=== PATIENT | female | born 1990 | race Caucasian/White ===

== ENCOUNTER 2016-05-30 12:48 | Emergency (ER) | payer OTHER, SELFPAY ==
[2016-05-30 14:48] LABS: BASO % 0.4 % (0.0-1.0); EOS # 0.1 K/mm3 (0.0-0.50); EOS % 1.3 % (0.0-3.0); LARGE UNSTAINED CELL # 0.1 K/mm3 (0.0-0.4); LARGE UNSTAINED CELL % 1.3 % (0.0-4.0); LYMPH # 1.6 K/mm3 (1.5-6.5); LYMPH % 20.1 % (24.0-44.0); MEAN CORPUSCULAR HEMOGLOBIN 29.2 pg (27.0-33.0); MEAN CORPUSCULAR HGB CONC 34.7 g/dl (32.0-36.5); MEAN CORPUSCULAR VOLUME 84.2 fl (80.0-96.0); MONO # 0.3 K/mm3 (0.0-0.8); MONO % 4.2 % (0.0-5.0); NEUTROPHILS # 5.7 K/mm3 (1.8-7.7); NEUTROPHILS % 72.6 % (36.0-66.0); PLATELET COUNT, AUTOMATED 356 k/mm3 (150-450); RED CELL DISTRIBUTION WIDTH 12.8 % (11.5-14.5); WHITE BLOOD COUNT 7.9 K/mm3 (4.0-10.0)
[2016-05-30 15:16] LABS: ANION GAP 9 MEQ/L (8-16); BLOOD UREA NITROGEN 16 MG/DL (7-18); CALCIUM LEVEL 9.1 MG/DL (8.5-10.1); CARBON DIOXIDE LEVEL 26 MEQ/L (21-32); CHLORIDE LEVEL 106 MEQ/L (98-107); CREATININE FOR GFR 0.88 MG/DL (0.55-1.02); GLOMERULAR FILTRATION RATE > 60.0 (>60); GLUCOSE, FASTING 92 MG/DL (70-105); POTASSIUM SERUM 4.2 MEQ/L (3.5-5.1); SODIUM LEVEL 141 MEQ/L (136-145)
[2016-05-30 15:17] LABS: HCG, SERUM QUANTITATIVE < 1.0 MIU/ML
--- NOTE | 2016-05-30 16:43 | EDDOCDS ---
Physician Documentation [facility] Name: Payton Colon Age: 25 yrs Sex: Female : 1990 Arrival Date: 05/30/2016 Time: 12:48 Bed PR / Private MD: No PCP Disposition: 05/30/16 16:36 Discharged to Home/Self Care. Impression: Abnormal uterine and vaginal bleeding, unspecified. - Condition is Stable. - Discharge Instructions: Abnormal Uterine Bleeding. - Medication Reconciliation form. - Follow up: Emergency Department; When: As needed. Follow up: Rosmery Lu MD; When: Tomorrow; Reason: Wound/Symptom Recheck, Further diagnostic work-up, Recheck today's complaints, Continuance of care. - Problem is chronic. - Symptoms are unchanged. Historical: - Allergies: no known allergies; - Home Meds: 1. control pill 1 tab daily (Last dose: 05/30/2016 09:00) - PMHx: none; - PSHx: Tonsillectomy; Gall Bladder Removal; - Social history: Smoking status: Patient states was never smoker of tobacco. No barriers to communication noted, The patient speaks fluent Portuguese, Speaks appropriately for age. - Family history: Not pertinent. - : The pt / caregiver states he / she is not on anticoagulants. Home medication list is obtained from the patient. - Exposure Risk Screening:: None identified. 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 5 in. (165.10 cm) (R); Pain 2/10; 16:42 BP 145 / 95; Pulse 77; Resp 18; Temp 97.8; Pulse Ox 97% on R/A; Pain 0/10; rn1 12:50 Body Mass Index 36.61 (99.79 kg, 165.10 cm) gr2 MDM: 14:37 CBC with Diff Ordered. EDMS 14:37 Hcg, Serum Quantitative Ordered. EDMS 14:37 BMP Ordered. EDMS 14:37 TSH w/o Free T4 Ordered. EDMS 14:37 -US Pelvic Non-Ob Complete Ordered. EDMS 14:37 DUPLEX SCAN LIMITED (DOPPLER)+US Ordered. EDMS 14:37 UA Ordered. EDMS 14:42 Transvaginal NON- US Ordered. EDMS 14:43 Financial registration complete. mm15 15:16 [facility] Payment Agreement was scanned into [employer] and attached to record. mm15 16:22 CBC with Diff Reviewed. cc10 16:22 UA Reviewed. cc10 16:22 Hcg, Serum Quantitative Reviewed. cc10 16:22 BMP Reviewed. cc10 16:22 TSH w/o Free T4 Reviewed. cc10 Signatures: Dispatcher [employer] EDMS Parris Gannon,RN RN dsf Kya Mejia mm15 Juan Lowe, PACarolaC PASwapnil cc10 Toña Bhardwaj LPN LPN ka4 The chart was reviewed and I authenticate all verbal orders and agree with the evaluation and treatment provided.Attachments: 15:16 [facility] Payment Agreement mm15 MTDD
--- NOTE | 2016-05-30 16:43 | EDDOCDS ---
Nurse's Notes [facility] Name: Payton Colon Age: 25 yrs Sex: Female : 1990 Arrival Date: 05/30/2016 Time: 12:48 Bed PR Private MD: No PCP Diagnosis: Abnormal uterine and vaginal bleeding, unspecified Presentation: 05/30 12:51 Presenting complaint: Patient states: vaginal bleeding that started yesterday. Pt dsf states she is changing her pad every hour. pt denies pain or . Risk factors: The patient reports no loss of conciousness prior to arrival. This patient has not had a hysterectomy. This patient has not begun menopause. Adult Sepsis Screening: The patient does not have new or worsening altered mentation. Patient's respiratory rate is less than 22. Systolic blood pressure is greater than 100. Patient has a qSOFA score of 0- Negative Sepsis Screen. Suicide/Homicide risk assessment- the patient denies having any suicidal and/or homicidal ideations and does not present with any other emotional, behavioral or mental health complaints. Status: Patient is not a equipment services associate or dependent. Transition of care: patient was not received from another setting of care. 12:51 Acuity: ALBARO Level 3 dsf 12:51 Method Of Arrival: Walkin/Carried/Asstd dsf Triage Assessment: 12:53 General: Appears in no apparent distress, Behavior is appropriate for age, cooperative. dsf HIV screening NA for this visit Offered previously. GI: Denies pain. : Reports vaginal bleeding that is bright red with clots heavy flow since yesterday. Pain: Denies pain. 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 control pill 1 tab daily (Last dose: 05/30/2016 09:00) - PMHx: none; - PSHx: Tonsillectomy; Gall Bladder Removal; - Social history: Smoking status: Patient states was never smoker of tobacco. No barriers to communication noted, The patient speaks fluent Liberian, Speaks appropriately for age. - Family history: Not pertinent. - : The pt / caregiver states he / she is not on anticoagulants. Home medication list is obtained from the patient. - Exposure Risk Screening:: None identified. Screenin:40 Screening information is obtained from the patient. Fall risk: No risks identified. ka4 Assistance ADL's: requires no assistance with activities of daily living. Abuse/DV Screen: The patient / caregiver reports he/she is: not in a situation that causes fear, pain or injury. Nutritional screening: No deficits noted. Advance Directives: There is no active DNR order. home support is adequate. Assessment: 14:19 Adult Sepsis Screening: The patient does not have new or worsening altered mentation. dsf Patient's respiratory rate is less than 22. Systolic blood pressure is greater than 100. Patient has a qSOFA score of 0- Negative Sepsis Screen. General: Appears in no apparent distress, comfortable, Behavior is appropriate for age, cooperative. Pain: Location: low back Pain currently is 3 out of 10 on a pain scale. Quality of pain is described as aching. Neurological: Level of Consciousness is awake, alert. Cardiovascular: Capillary refill < 3 seconds. Respiratory: Airway is patent Respiratory effort is even, unlabored, Respiratory pattern is regular, symmetrical. : Reports vaginal bleeding that is bright red with clots heavy flow since yesterday. Derm: Skin is pink, warm & dry. 16:42 General: Appears in no apparent distress, comfortable, Behavior is appropriate for age, ka4 cooperative, pleasant. Respiratory: Airway is patent Respiratory effort is even, unlabored, Respiratory pattern is regular, symmetrical. Derm: Skin is intact, is healthy with good turgor, Skin is pink, warm & dry. Vital Signs: 12:50 BP 154 / 98; Pulse 96; Resp 18 S; Temp 98.3(O); Pulse Ox 98% on R/A; Weight 99.79 kg gr2 (R); Height 5 ft. 5 in. (165.10 cm) (R); Pain 2/10; 16:42 BP 145 / 95; Pulse 77; Resp 18; Temp 97.8; Pulse Ox 97% on R/A; Pain 0/10; rn1 12:50 Body Mass Index 36.61 (99.79 kg, 165.10 cm) gr2 Vitals: 12:50 Log In Time: May 30, 2016 at 12:50. gr2 ED Course: 12:49 Patient visited by Issac Ordonez. gr2 12:49 No PCP is Private Physician. gr2 12:49 Patient moved to Waiting gr2 12:50 Patient visited by Issac Ordonez. gr2 12:50 Patient moved to Pre RCE gr2 12:52 Triage Initiated dsf 14:18 Patient moved to Triage 3 dsf 14:20 Patient visited by Parris Gannon RN. dsf 14:25 Juan Lowe PA-C is PHCP. cc10 14:25 Candi Haile MD is Attending Physician. cc10 14:31 Patient visited by Juan Lowe PA-C. cc10 14:31 Patient visited by Juan Lowe PA-C. cc10 14:42 Patient moved to TR2 kr3 14:42 TSH w/o Free T4 Sent. kr3 14:42 BMP Sent. kr3 14:42 Hcg, Serum Quantitative Sent. kr3 14:42 CBC with Diff Sent. kr3 15:16 [facility] [place] Agreement was scanned into [employer] and attached to record. mm15 15:21 Patient moved to Ultrasound sm5 15:22 UA Sent. kr3 15:54 Patient moved to TR2 sm5 16:19 Patient name changed from Payton\S\\S\Colon\S\ to Payton\S\ \S\Colon. EDMS 16:22 Patient moved to PR kr3 16:36 Rosmery Lu MD is Referral Physician. cc10 16:40 The patient / caregiver is instructed regarding the plan of care and ED course. ka4 16:40 No IV's were initiated during this patient's visit. No procedures done that require ka4 assistance. Order Results: Lab Order: CBC with Diff; SPEC'M 05/30/16 14:40 Test: WHITE BLOOD COUNT; Value: 7.9; Range: 4.0-10.0; Units: K/mm3; Status: F Test: RED BLOOD COUNT; Value: 5.10; Range: 4.00-5.40; Units: M/mm3; Status: F Test: HEMOGLOBIN; Value: 14.9; Range: 12.0-16.0; Units: g/dl; Status: F Test: HEMATOCRIT; Value: 43.0; Range: 36.0-47.0; Units: %; Status: F Test: MEAN CORPUSCULAR VOLUME; Value: 84.2; Range: 80.0-96.0; Units: fl; Status: F Test: MEAN CORPUSCULAR HEMOGLOBIN; Value: 29.2; Range: 27.0-33.0; Units: pg; Status: F Test: MEAN CORPUSCULAR HGB CONC; Value: 34.7; Range: 32.0-36.5; Units: g/dl; Status: F Test: RED CELL DISTRIBUTION WIDTH; Value: 12.8; Range: 11.5-14.5; Units: %; Status: F Test: PLATELET COUNT, AUTOMATED; Value: 356; Range: 150-450; Units: k/mm3; Status: F Test: NEUTROPHILS %; Value: 72.6; Range: 36.0-66.0; Abnormal: Above high normal; Units: %; Status: F Test: LYMPH %; Value: 20.1; Range: 24.0-44.0; Abnormal: Below low normal; Units: %; Status: F Test: MONO %; Value: 4.2; Range: 0.0-5.0; Units: %; Status: F Test: EOS %; Value: 1.3; Range: 0.0-3.0; Units: %; Status: F Test: BASO %; Value: 0.4; Range: 0.0-1.0; Units: %; Status: F Test: LARGE UNSTAINED CELL %; Value: 1.3; Range: 0.0-4.0; Units: %; Status: F Test: NEUTROPHILS #; Value: 5.7; Range: 1.8-7.7; Units: K/mm3; Status: F Test: LYMPH #; Value: 1.6; Range: 1.5-6.5; Units: K/mm3; Status: F Test: MONO #; Value: 0.3; Range: 0.0-0.8; Units: K/mm3; Status: F Test: EOS #; Value: 0.1; Range: 0.0-0.50; Units: K/mm3; Status: F Test: BASO #; Value: 0.0; Range: 0.0-0.2; Units: K/mm3; Status: F Test: LARGE UNSTAINED CELL #; Value: 0.1; Range: 0.0-0.4; Units: K/mm3; Status: F Lab Order: Hcg, Serum Quantitative; SPEC'M 05/30/16 14:40 Test: HCG, SERUM QUANTITATIVE; Value: < 1.0; Units: MIU/ML; Status: F Test Note: ; GESTATIONAL AGE APPROXIMATE HCG RANGE (MIU/ML) 0.2-1 WEEK 5-50 1-2 WEEKS 50-500 2-3 WEEKS 100-5,000 3-4 WEEKS 500-10,000 4-5 WEEKS 1,000-50,000 5-6 WEEKS 10,000-100,000 6-8 WEEKS 15,000-200,000 2-3 MONTHS 10,000-100,000 NON FEMALES LESS THAN 3.0 Patient samples may contain human heterophilic antibodies that could react with immunoassays to give falsely elevated or depressed results. This assay has been designed to minimize interference from heterophilic antibodies. Elevated hCG levels have also been associated with trophoblastic disease and nontrophoblastic neoplasms. The possibility of having these diseases should be considered before a diagnosis of is made. This test is not intended for use as a surrogate marker for aiding in the diagnosis or monitoring the treatment of cancer patients. [employer] methodology. Lab Order: BMP; SPEC'M 05/30/16 14:40 Test: GLUCOSE, FASTING; Value: 92; Range: 70-105; Units: MG/DL; Status: F Test: BLOOD UREA NITROGEN; Value: 16; Range: 7-18; Units: MG/DL; Status: F Test: CREATININE FOR GFR; Value: 0.88; Range: 0.55-1.02; Units: MG/DL; Status: F Test: GLOMERULAR FILTRATION RATE; Value: > 60.0; Range: >60; Status: F Test: SODIUM LEVEL; Value: 141; Range: 136-145; Units: MEQ/L; Status: F Test: POTASSIUM SERUM; Value: 4.2; Range: 3.5-5.1; Units: MEQ/L; Status: F Test: CHLORIDE LEVEL; Value: 106; Range: 98-107; Units: MEQ/L; Status: F Test: CARBON DIOXIDE LEVEL; Value: 26; Range: 21-32; Units: MEQ/L; Status: F Test: ANION GAP; Value: 9; Range: 8-16; Units: MEQ/L; Status: F Test: CALCIUM LEVEL; Value: 9.1; Range: 8.5-10.1; Units: MG/DL; Status: F Test Note: ; Units are mL/min/1.73 m2 Chronic Kidney Disease Staging per NKF: Stage I & II GFR >=60 Normal to Mildly Decreased Stage III GFR 30-59 Moderately Decreased Stage IV GFR 15-29 Severely Decreased Stage V GFR <15 Very Little GFR Left ESRD GFR <15 on CREATIVE TECHNOLOGIST Lab Order: TSH w/o Free T4; SPEC'M 05/30/16 14:40 Test: THYROID STIMULATING HORMONE; Value: 2.150; Range: 0.358-3.740; Units: uIU/ML; Status: F Lab Order: UA; SPEC'M 05/30/16 15:20 Test: APPEARANCE, URINE; Value: CLOUDY; Range: CLEAR; Abnormal: Above high normal; Status: F Test: COLOR, URINE; Value: TEO; Range: YELLOW; Status: F Test: PH,URINE; Value: 5.0; Range: 5.0-9.0; Units: UNITS; Status: F Test: SPECIFIC GRAVITY URINE AUTO; Value: 1.028; Range: 1.002-1.035; Status: F Test: PROTEIN, URINE AUTO; Value: 2+; Range: NEGATIVE; Abnormal: Above high normal; Units: mg/dL; Status: F Test: GLUCOSE, URINE (UA) AUTO; Value: NEGATIVE; Range: NEGATIVE; Units: mg/dL; Status: F Test: KETONE, URINE AUTO; Value: NEGATIVE; Range: NEGATIVE; Units: mg/dL; Status: F Test: UROBILINOGEN, URINE AUTO; Value: 0.2; Range: 0.0-2.0; Units: mg/dL; Status: F Test: BILIRUBIN, URINE AUTO; Value: NEGATIVE; Range: NEGATIVE; Status: F Test: NITRITE, URINE AUTO; Value: POSITIVE; Range: NEGATIVE; Status: F Test: LEUKOCYTE ESTERASE, URINE AUTO; Value: NEGATIVE; Range: NEGATIVE; Status: F Test: BLOOD, URINE BLOOD; Value: 3+; Range: NEGATIVE; Abnormal: Above high normal; Status: F Test: WBC, URINE AUTO; Value: 1; Range: 0-3; Units: /HPF; Status: F Test: RBC, URINE AUTO; Value: TNTC; Range: 0-3; Abnormal: Above high normal; Units: /HPF; Status: F Test: BACTERIA, URINE AUTO; Value: 3+; Range: NEGATIVE; Abnormal: Above high normal; Status: F Test: SQUAMOUS EPITHELIAL CELL UR AU; Value: 8; Range: 0-6; Units: /HPF; Status: F Test: MUCUS, URINE; Value: MODERATE; Range: NEGATIVE; Status: F Test: HYALINE CAST, URINE AUTO; Value: 0; Range: 0-1; Units: /LPF; Status: F Outcome: 16:36 Discharge ordered by Provider. cc10 16:40 Discharge Assessment: Patient awake, alert and oriented x 3. No cognitive and/or ka4 functional deficits noted. Patient verbalized understanding of disposition instructions. patient administered narcotics - no. The following High Risk Discharge criteria are identified: None. Discharged to home ambulatory. Condition: good Condition: stable. Discharge instructions given to patient, Instructed on discharge instructions, follow up and referral plans. Demonstrated understanding of instructions, Pt was receptive of discharge instructions/ teaching. Ultrasound Study completed. Property removed. 16:43 Patient left the ED. ka4 Signatures: Dispatcher [employer] EDMS Rylie Cole sm5 Iliana Wei,RN RN [email or web address] Parris Gannon,MIGDALIA RN dsf Issac Ordonez gr2 Kya Mejia mm15 Juan Lowe, PA-C PA-C cc10 Toña Bhardwaj LPN FOOD MOBILE DRIVER ka4 Jeffrey Villarreal rn1 MTDD
--- NOTE | 2016-05-30 16:50 | REP ---
Pelvic sonogram: History: Vaginal bleeding. Findings: Transabdominal and transvaginal scanning are performed. Uterine dimensions are normal at 7.1 x 3.4 x 4.0 cm. Endometrial echo is 0.4 cm thick. There is a Nabothian cyst in the cervix. No focal uterine mass is seen. No free fluid is noted. Normal ovaries are seen. Right ovary dimensions of 2.6 x 2.3 x 2.3 cm. Left ovary measures 2.3 x 2.4 x 2.4 cm. Doppler flow is normal in the ovaries bilaterally. Resistive indices are 0.7 on the right and 0.6 on the left. Impression Normal pelvic sonography. Signed by Arun Worley MD 05/30/2016 09:50 P
--- NOTE | 2016-06-01 17:44 | EDDOCDS ---
Physician Documentation [facility] Name: Payton Colon Age: 25 yrs Sex: Female : 1990 Arrival Date: 05/30/2016 Time: 12:48 Bed PR / Private MD: No PCP Disposition: 05/30/16 16:36 Discharged to Home/Self Care. Impression: Abnormal uterine and vaginal bleeding, unspecified. - Condition is Stable. - Discharge Instructions: Abnormal Uterine Bleeding. - Medication Reconciliation form. - Follow up: Emergency Department; When: As needed. Follow up: Rosmery Lu MD; When: Tomorrow; Reason: Wound/Symptom Recheck, Further diagnostic work-up, Recheck today's complaints, Continuance of care. - Problem is chronic. - Symptoms are unchanged. Historical: - Allergies: no known allergies; - Home Meds: 1. control pill 1 tab daily (Last dose: 05/30/2016 09:00) - PMHx: none; - PSHx: Tonsillectomy; Gall Bladder Removal; - Social history: Smoking status: Patient states was never smoker of tobacco. No barriers to communication noted, The patient speaks fluent Greek, Speaks appropriately for age. - Family history: Not pertinent. - : The pt / caregiver states he / she is not on anticoagulants. Home medication list is obtained from the patient. - Exposure Risk Screening:: None identified. 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 5 in. (165.10 cm) (R); Pain 2/10; 16:42 BP 145 / 95; Pulse 77; Resp 18; Temp 97.8; Pulse Ox 97% on R/A; Pain 0/10; rn1 12:50 Body Mass Index 36.61 (99.79 kg, 165.10 cm) gr2 MDM: 14:37 CBC with Diff Ordered. EDMS 14:37 Hcg, Serum Quantitative Ordered. EDMS 14:37 BMP Ordered. EDMS 14:37 TSH w/o Free T4 Ordered. EDMS 14:37 -US Pelvic Non-Ob Complete Ordered. EDMS 14:37 DUPLEX SCAN LIMITED (DOPPLER)+US Ordered. EDMS 14:37 UA Ordered. EDMS 14:42 Transvaginal NON- US Ordered. EDMS 14:43 Financial registration complete. mm15 15:16 [facility] Payment Agreement was scanned into [employer] and attached to record. mm15 16:22 CBC with Diff Reviewed. cc10 16:22 UA Reviewed. cc10 16:22 Hcg, Serum Quantitative Reviewed. cc10 16:22 BMP Reviewed. cc10 16:22 TSH w/o Free T4 Reviewed. cc10 05/31 07:03 T-Sheet-- Draft Copy was scanned into [employer] and attached to record. gb Signatures: Dispatcher [employer] EDMS Sophia Winn, Alex Reg Parris Abernathy,RN RN dsf Kya Mejia mm15 Juan Lowe, PA-C PA-C cc10 Toña Bhardwaj,[facility] [facility] ka4 The chart was reviewed and I authenticate all verbal orders and agree with the evaluation and treatment provided.Attachments: 05/30 15:16 [facility] Payment Agreement mm15 05/31 07:03 T-Sheet-- Draft Copy gb Chart Complete MTDD
--- NOTE | 2016-06-01 17:44 | EDDOCDS ---
Physician Documentation [facility] Name: Payton Colon Age: 25 yrs Sex: Female : 1990 Arrival Date: 05/30/2016 Time: 12:48 Bed PR / Private MD: No PCP Disposition: 05/30/16 16:36 Discharged to Home/Self Care. Impression: Abnormal uterine and vaginal bleeding, unspecified. - Condition is Stable. - Discharge Instructions: Abnormal Uterine Bleeding. - Medication Reconciliation form. - Follow up: Emergency Department; When: As needed. Follow up: Rosmery Lu MD; When: Tomorrow; Reason: Wound/Symptom Recheck, Further diagnostic work-up, Recheck today's complaints, Continuance of care. - Problem is chronic. - Symptoms are unchanged. Historical: - Allergies: no known allergies; - Home Meds: 1. control pill 1 tab daily (Last dose: 05/30/2016 09:00) - PMHx: none; - PSHx: Tonsillectomy; Gall Bladder Removal; - Social history: Smoking status: Patient states was never smoker of tobacco. No barriers to communication noted, The patient speaks fluent Vietnamese, Speaks appropriately for age. - Family history: Not pertinent. - : The pt / caregiver states he / she is not on anticoagulants. Home medication list is obtained from the patient. - Exposure Risk Screening:: None identified. 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 5 in. (165.10 cm) (R); Pain 2/10; 16:42 BP 145 / 95; Pulse 77; Resp 18; Temp 97.8; Pulse Ox 97% on R/A; Pain 0/10; rn1 12:50 Body Mass Index 36.61 (99.79 kg, 165.10 cm) gr2 MDM: 14:37 CBC with Diff Ordered. EDMS 14:37 Hcg, Serum Quantitative Ordered. EDMS 14:37 BMP Ordered. EDMS 14:37 TSH w/o Free T4 Ordered. EDMS 14:37 -US Pelvic Non-Ob Complete Ordered. EDMS 14:37 DUPLEX SCAN LIMITED (DOPPLER)+US Ordered. EDMS 14:37 UA Ordered. EDMS 14:42 Transvaginal NON- US Ordered. EDMS 14:43 Financial registration complete. mm15 15:16 [facility] Payment Agreement was scanned into [employer] and attached to record. mm15 16:22 CBC with Diff Reviewed. cc10 16:22 UA Reviewed. cc10 16:22 Hcg, Serum Quantitative Reviewed. cc10 16:22 BMP Reviewed. cc10 16:22 TSH w/o Free T4 Reviewed. cc10 05/31 07:03 T-Sheet-- Draft Copy was scanned into [employer] and attached to record. gb Signatures: Dispatcher [employer] EDMS Spohia Winn, Alex Reg Parris Abernathy,RN RN dsf Kya Mejia mm15 Juan Lowe, PA-C PA-C cc10 Toña Bhardwaj,PEDIATRIC PHYSIATRIST PEDIATRIC PHYSIATRIST ka4 The chart was reviewed and I authenticate all verbal orders and agree with the evaluation and treatment provided.Attachments: 05/30 15:16 [facility] Payment Agreement mm15 05/31 07:03 T-Sheet-- Draft Copy gb Chart Complete MTDD
--- NOTE | 2016-06-01 17:44 | EDDOCDS ---
Nurse's Notes [facility] Name: Payton Colon Age: 25 yrs Sex: Female : 1990 Arrival Date: 05/30/2016 Time: 12:48 Bed PR Private MD: No PCP Diagnosis: Abnormal uterine and vaginal bleeding, unspecified Presentation: 05/30 12:51 Presenting complaint: Patient states: vaginal bleeding that started yesterday. Pt dsf states she is changing her pad every hour. pt denies pain or . Risk factors: The patient reports no loss of conciousness prior to arrival. This patient has not had a hysterectomy. This patient has not begun menopause. Adult Sepsis Screening: The patient does not have new or worsening altered mentation. Patient's respiratory rate is less than 22. Systolic blood pressure is greater than 100. Patient has a qSOFA score of 0- Negative Sepsis Screen. Suicide/Homicide risk assessment- the patient denies having any suicidal and/or homicidal ideations and does not present with any other emotional, behavioral or mental health complaints. Status: Patient is not a guest service manager or dependent. Transition of care: patient was not received from another setting of care. 12:51 Acuity: ALBARO Level 3 dsf 12:51 Method Of Arrival: Walkin/Carried/Asstd dsf Triage Assessment: 12:53 General: Appears in no apparent distress, Behavior is appropriate for age, cooperative. dsf HIV screening NA for this visit Offered previously. GI: Denies pain. : Reports vaginal bleeding that is bright red with clots heavy flow since yesterday. Pain: Denies pain. [employer]: 12:53 LMP 05/24/2016 dsf Historical: - Allergies: no known allergies; - Home Meds: 1. control pill 1 tab daily (Last dose: 05/30/2016 09:00) - PMHx: none; - PSHx: Tonsillectomy; Gall Bladder Removal; - Social history: Smoking status: Patient states was never smoker of tobacco. No barriers to communication noted, The patient speaks fluent Citizen Of [place], Speaks appropriately for age. - Family history: Not pertinent. - : The pt / caregiver states he / she is not on anticoagulants. Home medication list is obtained from the patient. - Exposure Risk Screening:: None identified. Screenin:40 Screening information is obtained from the patient. Fall risk: No risks identified. ka4 Assistance ADL's: requires no assistance with activities of daily living. Abuse/DV Screen: The patient / caregiver reports he/she is: not in a situation that causes fear, pain or injury. Nutritional screening: No deficits noted. Advance Directives: There is no active DNR order. home support is adequate. Assessment: 14:19 Adult Sepsis Screening: The patient does not have new or worsening altered mentation. dsf Patient's respiratory rate is less than 22. Systolic blood pressure is greater than 100. Patient has a qSOFA score of 0- Negative Sepsis Screen. General: Appears in no apparent distress, comfortable, Behavior is appropriate for age, cooperative. Pain: Location: low back Pain currently is 3 out of 10 on a pain scale. Quality of pain is described as aching. Neurological: Level of Consciousness is awake, alert. Cardiovascular: Capillary refill < 3 seconds. Respiratory: Airway is patent Respiratory effort is even, unlabored, Respiratory pattern is regular, symmetrical. : Reports vaginal bleeding that is bright red with clots heavy flow since yesterday. Derm: Skin is pink, warm & dry. 16:42 General: Appears in no apparent distress, comfortable, Behavior is appropriate for age, ka4 cooperative, pleasant. Respiratory: Airway is patent Respiratory effort is even, unlabored, Respiratory pattern is regular, symmetrical. Derm: Skin is intact, is healthy with good turgor, Skin is pink, warm & dry. Vital Signs: 12:50 BP 154 / 98; Pulse 96; Resp 18 S; Temp 98.3(O); Pulse Ox 98% on R/A; Weight 99.79 kg gr2 (R); Height 5 ft. 5 in. (165.10 cm) (R); Pain 2/10; 16:42 BP 145 / 95; Pulse 77; Resp 18; Temp 97.8; Pulse Ox 97% on R/A; Pain 0/10; rn1 12:50 Body Mass Index 36.61 (99.79 kg, 165.10 cm) gr2 Vitals: 12:50 Log In Time: May 30, 2016 at 12:50. gr2 ED Course: 12:49 Patient visited by Issac Ordonez. gr2 12:49 No PCP is Private Physician. gr2 12:49 Patient moved to Waiting gr2 12:50 Patient visited by Issac Ordonez. gr2 12:50 Patient moved to Pre RCE gr2 12:52 Triage Initiated dsf 14:18 Patient moved to Triage 3 dsf 14:20 Patient visited by Parris Gannon RN. dsf 14:25 Juan Lowe PA-C is PHCP. cc10 14:25 Candi Haile MD is Attending Physician. cc10 14:31 Patient visited by Juan Lowe PA-C. cc10 14:31 Patient visited by Juan Lowe PA-C. cc10 14:42 Patient moved to TR2 kr3 14:42 TSH w/o Free T4 Sent. kr3 14:42 BMP Sent. kr3 14:42 Hcg, Serum Quantitative Sent. kr3 14:42 CBC with Diff Sent. kr3 15:16 [place] Payment Agreement was scanned into [employer] and attached to record. mm15 15:21 Patient moved to Ultrasound sm5 15:22 UA Sent. kr3 15:54 Patient moved to TR2 sm5 16:19 Patient name changed from Payton\S\\S\Colon\S\ to Payton\S\ \S\Colon. EDMS 16:22 Patient moved to PR / kr3 16:36 Rosmery Lu MD is Referral Physician. cc10 16:40 The patient / caregiver is instructed regarding the plan of care and ED course. ka4 16:40 No IV's were initiated during this patient's visit. No procedures done that require ka4 assistance. 17:18 -US Pelvic Non-Ob Complete Returned. EDMS 05/31 07:03 T-Sheet-- Draft Copy was scanned into [employer] and attached to record. gb Order Results: Lab Order: CBC with Diff; SPEC'M 05/30/16 14:40 Test: WHITE BLOOD COUNT; Value: 7.9; Range: 4.0-10.0; Units: K/mm3; Status: F Test: RED BLOOD COUNT; Value: 5.10; Range: 4.00-5.40; Units: M/mm3; Status: F Test: HEMOGLOBIN; Value: 14.9; Range: 12.0-16.0; Units: g/dl; Status: F Test: HEMATOCRIT; Value: 43.0; Range: 36.0-47.0; Units: %; Status: F Test: MEAN CORPUSCULAR VOLUME; Value: 84.2; Range: 80.0-96.0; Units: fl; Status: F Test: MEAN CORPUSCULAR HEMOGLOBIN; Value: 29.2; Range: 27.0-33.0; Units: pg; Status: F Test: MEAN CORPUSCULAR HGB CONC; Value: 34.7; Range: 32.0-36.5; Units: g/dl; Status: F Test: RED CELL DISTRIBUTION WIDTH; Value: 12.8; Range: 11.5-14.5; Units: %; Status: F Test: PLATELET COUNT, AUTOMATED; Value: 356; Range: 150-450; Units: k/mm3; Status: F Test: NEUTROPHILS %; Value: 72.6; Range: 36.0-66.0; Abnormal: Above high normal; Units: %; Status: F Test: LYMPH %; Value: 20.1; Range: 24.0-44.0; Abnormal: Below low normal; Units: %; Status: F Test: MONO %; Value: 4.2; Range: 0.0-5.0; Units: %; Status: F Test: EOS %; Value: 1.3; Range: 0.0-3.0; Units: %; Status: F Test: BASO %; Value: 0.4; Range: 0.0-1.0; Units: %; Status: F Test: LARGE UNSTAINED CELL %; Value: 1.3; Range: 0.0-4.0; Units: %; Status: F Test: NEUTROPHILS #; Value: 5.7; Range: 1.8-7.7; Units: K/mm3; Status: F Test: LYMPH #; Value: 1.6; Range: 1.5-6.5; Units: K/mm3; Status: F Test: MONO #; Value: 0.3; Range: 0.0-0.8; Units: K/mm3; Status: F Test: EOS #; Value: 0.1; Range: 0.0-0.50; Units: K/mm3; Status: F Test: BASO #; Value: 0.0; Range: 0.0-0.2; Units: K/mm3; Status: F Test: LARGE UNSTAINED CELL #; Value: 0.1; Range: 0.0-0.4; Units: K/mm3; Status: F Lab Order: Hcg, Serum Quantitative; SPEC'M 05/30/16 14:40 Test: HCG, SERUM QUANTITATIVE; Value: < 1.0; Units: MIU/ML; Status: F Test Note: ; GESTATIONAL AGE APPROXIMATE HCG RANGE (MIU/ML) 0.2-1 WEEK 5-50 1-2 WEEKS 50-500 2-3 WEEKS 100-5,000 3-4 WEEKS 500-10,000 4-5 WEEKS 1,000-50,000 5-6 WEEKS 10,000-100,000 6-8 WEEKS 15,000-200,000 2-3 MONTHS 10,000-100,000 NON FEMALES LESS THAN 3.0 Patient samples may contain human heterophilic antibodies that could react with immunoassays to give falsely elevated or depressed results. This assay has been designed to minimize interference from heterophilic antibodies. Elevated hCG levels have also been associated with trophoblastic disease and nontrophoblastic neoplasms. The possibility of having these diseases should be considered before a diagnosis of is made. This test is not intended for use as a surrogate marker for aiding in the diagnosis or monitoring the treatment of cancer patients. Siemens [employer]om methodology. Lab Order: BMP; SPEC'M 05/30/16 14:40 Test: GLUCOSE, FASTING; Value: 92; Range: 70-105; Units: MG/DL; Status: F Test: BLOOD UREA NITROGEN; Value: 16; Range: 7-18; Units: MG/DL; Status: F Test: CREATININE FOR GFR; Value: 0.88; Range: 0.55-1.02; Units: MG/DL; Status: F Test: GLOMERULAR FILTRATION RATE; Value: > 60.0; Range: >60; Status: F Test: SODIUM LEVEL; Value: 141; Range: 136-145; Units: MEQ/L; Status: F Test: POTASSIUM SERUM; Value: 4.2; Range: 3.5-5.1; Units: MEQ/L; Status: F Test: CHLORIDE LEVEL; Value: 106; Range: 98-107; Units: MEQ/L; Status: F Test: CARBON DIOXIDE LEVEL; Value: 26; Range: 21-32; Units: MEQ/L; Status: F Test: ANION GAP; Value: 9; Range: 8-16; Units: MEQ/L; Status: F Test: CALCIUM LEVEL; Value: 9.1; Range: 8.5-10.1; Units: MG/DL; Status: F Test Note: ; Units are mL/min/1.73 m2 Chronic Kidney Disease Staging per NKF: Stage I & II GFR >=60 Normal to Mildly Decreased Stage III GFR 30-59 Moderately Decreased Stage IV GFR 15-29 Severely Decreased Stage V GFR <15 Very Little GFR Left ESRD GFR <15 on BEHAVIORAL PSYCHOLOGIST Lab Order: TSH w/o Free T4; SPEC'M 05/30/16 14:40 Test: THYROID STIMULATING HORMONE; Value: 2.150; Range: 0.358-3.740; Units: uIU/ML; Status: F Lab Order: UA; SPEC'M 05/30/16 15:20 Test: APPEARANCE, URINE; Value: CLOUDY; Range: CLEAR; Abnormal: Above high normal; Status: F Test: COLOR, URINE; Value: TEO; Range: YELLOW; Status: F Test: PH,URINE; Value: 5.0; Range: 5.0-9.0; Units: UNITS; Status: F Test: SPECIFIC GRAVITY URINE AUTO; Value: 1.028; Range: 1.002-1.035; Status: F Test: PROTEIN, URINE AUTO; Value: 2+; Range: NEGATIVE; Abnormal: Above high normal; Units: mg/dL; Status: F Test: GLUCOSE, URINE (UA) AUTO; Value: NEGATIVE; Range: NEGATIVE; Units: mg/dL; Status: F Test: KETONE, URINE AUTO; Value: NEGATIVE; Range: NEGATIVE; Units: mg/dL; Status: F Test: UROBILINOGEN, URINE AUTO; Value: 0.2; Range: 0.0-2.0; Units: mg/dL; Status: F Test: BILIRUBIN, URINE AUTO; Value: NEGATIVE; Range: NEGATIVE; Status: F Test: NITRITE, URINE AUTO; Value: POSITIVE; Range: NEGATIVE; Status: F Test: LEUKOCYTE ESTERASE, URINE AUTO; Value: NEGATIVE; Range: NEGATIVE; Status: F Test: BLOOD, URINE BLOOD; Value: 3+; Range: NEGATIVE; Abnormal: Above high normal; Status: F Test: WBC, URINE AUTO; Value: 1; Range: 0-3; Units: /HPF; Status: F Test: RBC, URINE AUTO; Value: TNTC; Range: 0-3; Abnormal: Above high normal; Units: /HPF; Status: F Test: BACTERIA, URINE AUTO; Value: 3+; Range: NEGATIVE; Abnormal: Above high normal; Status: F Test: SQUAMOUS EPITHELIAL CELL UR AU; Value: 8; Range: 0-6; Units: /HPF; Status: F Test: MUCUS, URINE; Value: MODERATE; Range: NEGATIVE; Status: F Test: HYALINE CAST, URINE AUTO; Value: 0; Range: 0-1; Units: /LPF; Status: F Radiology Order: -US Pelvic Non-Ob Complete Test: -US Pelvic Non-Ob Complete REASON FOR EXAMINATION: Vaginal Bleeding - Nn-; Pelvic sonogram:; ; History: Vaginal bleeding.; ; Findings: Transabdominal and transvaginal scanning are performed. Uterine; dimensions are normal at 7.1 x 3.4 x 4.0 cm. Endometrial echo is 0.4 cm thick.; There is a Nabothian cyst in the cervix. No focal uterine mass is seen. No free; fluid is noted.; ; Normal ovaries are seen. Right ovary dimensions of 2.6 x 2.3 x 2.3 cm. Left; ovary measures 2.3 x 2.4 x 2.4 cm. Doppler flow is normal in the ovaries; bilaterally. Resistive indices are 0.7 on the right and 0.6 on the left.; ; Impression; ; Normal pelvic sonography.; ; ; Signed by; Arun Worley MD 05/30/2016 09:50 P; Outcome: 05/30 16:36 Discharge ordered by Provider. cc10 16:40 Discharge Assessment: Patient awake, alert and oriented x 3. No cognitive and/or ka4 functional deficits noted. Patient verbalized understanding of disposition instructions. patient administered narcotics - no. The following High Risk Discharge criteria are identified: None. Discharged to home ambulatory. Condition: good Condition: stable. Discharge instructions given to patient, Instructed on discharge instructions, follow up and referral plans. Demonstrated understanding of instructions, Pt was receptive of discharge instructions/ teaching. Ultrasound Study completed. Property removed. 16:43 Patient left the ED. ka4 Signatures: Dispatcher [employer] EDMS Sophia Winn, Reg Reg paradise Cole, Rylie sm5 Iilana Wei,RN RN kr3 Parris Gannon,RN RN dsf Issac Ordonez gr2 Kya Mejia mm15 Juan Lowe, PA-C PA-C cc10 Toña Bhardwaj LPN PICC NURSE ka4 Jeffrey Villarreal rn1 Chart Complete MTDD
== END 2016-05-30 16:43 | disposition home or self-care (01) ==
LOC: M ED 12:48
DX: N92.5 Other specified irregular menstruation (principal); Z90.49 Acquired absence of other specified parts of digestive tract; Z79.3 Long term (current) use of hormonal contraceptives

== ENCOUNTER → 2016-07-18 | Outpatient (CLI) | payer SELFPAY ==
[2016-07-18 07:53] LABS: CONTROL LINE HCG INT CTR LINE PRESENT
[2016-07-18 08:09] LABS: T UPTAKE 27 % (30-39); THYROXINE (T4) 12.4 UG/DL (4.5-12.0)
[2016-07-18 09:52] LABS: FOLLICLE STIMULATING HORMONE 2.9 mIU/mL; LUTEINIZING HORMONE 6.3 mIU/mL; PROLACTIN 13.9 NG/ML
[2016-07-23 08:08] LABS: INSULIN FREE 15 uU/mL (.)
== END ==
LOC: M LAB 06:48
PROVIDERS: ATTEND Advanced Practice Midwife
DX: N92.6 Irregular menstruation, unspecified (principal)

== ENCOUNTER → 2016-09-26 | Outpatient (CLI) | payer SELFPAY ==
[2016-09-26 19:20] LABS: THYROXINE (T4) 16.2 UG/DL (4.5-12.0)
== END ==
LOC: M SMT 14:44
PROVIDERS: ATTEND Advanced Practice Midwife
DX: E03.9 Hypothyroidism, unspecified (principal)

== ENCOUNTER 2017-08-16 14:41 | Emergency (ER) | payer OTHER, SELFPAY ==
[2017-08-16] MEDS: ONDANSETRON 4MG/2ML VIAL (J2405) IV ×2 (15:12)
[2017-08-16] MEDS: KETOROLAC 30 MG/ML VIAL (J1885) IV ×2 (15:12)
[2017-08-16 15:28] LABS: KETONE, URINE AUTO RFX NEGATIVE (NEGATIVE); MUCUS, URINE RFX SMALL (NEGATIVE); NITRITE, URINE AUTO RFX NEGATIVE (NEGATIVE); RBC, URINE AUTO RFX 168 /HPF (0-3); SPECIFIC GRAVITY UR AUTO RFX 1.021 (1.002-1.035); SQUAM EPITHELIAL CELL UR AURFX 15 /HPF (0-6)
[2017-08-16 15:48] LABS: BASO % 0.3 % (0.0-1.0); EOS # 0.1 10^3/uL (0.0-0.50); HEMATOCRIT 43.8 % (36.0-47.0); HEMOGLOBIN 14.7 g/dl (12.0-16.0); IMMATURE GRANULOCYTE % 0.4 % (0-3.0); LYMPH # 2.6 10^3/uL (1.5-6.5); LYMPH % 29.4 % (24.0-44.0); MEAN CORPUSCULAR HEMOGLOBIN 28.5 pg (27.0-33.0); MEAN CORPUSCULAR HGB CONC 33.6 g/dl (32.0-36.5); MONO # 0.3 10^3/uL (0.0-0.8); MONO % 3.7 % (0.0-5.0); NEUTROPHILS # 5.9 10^3/uL (1.8-7.7); NEUTROPHILS % 65.2 % (36.0-66.0); PLATELET COUNT, AUTOMATED 404 10^3/uL (150-450); RED BLOOD COUNT 5.15 10^6/uL (4.00-5.40); RED CELL DISTRIBUTION WIDTH 12.3 % (11.5-14.5)
[2017-08-16 15:57] LABS: LEUKOCYTE ESTERASE UR AUTO RFX 1+ (NEGATIVE); WBC, URINE AUTO RFX 37 /HPF (0-3)
[2017-08-16] MEDS ORDERED: ISOVUE-370 76% 100ML VIAL (Q9967) As Ordered ×2 (16:04)
[2017-08-16 16:06] LABS: ALBUMIN 3.9 GM/DL (3.2-5.2); ALKALINE PHOSPHATASE 79 U/L (45-117); ALT/SGPT 36 U/L (12-78); ANION GAP 7 MEQ/L (8-16); AST/SGOT 15 U/L (7-37); BILIRUBIN,DIRECT 0.1 MG/DL (0.0-0.2); BILIRUBIN,TOTAL 0.4 MG/DL (0.2-1.0); BLOOD UREA NITROGEN 13 MG/DL (7-18); CALCIUM LEVEL 8.7 MG/DL (8.5-10.1); CARBON DIOXIDE LEVEL 28 MEQ/L (21-32); CHLORIDE LEVEL 106 MEQ/L (98-107); GLOMERULAR FILTRATION RATE > 60.0 (>60); GLUCOSE, FASTING 132 MG/DL (70-100); LIPASE 133 U/L (73-393); POTASSIUM SERUM 4.2 MEQ/L (3.5-5.1); SODIUM LEVEL 141 MEQ/L (136-145); TOTAL PROTEIN 7.8 GM/DL (6.4-8.2)
== END 2017-08-16 17:13 | disposition home or self-care (01) ==
LOC: M ED 14:41
DX: N83.201 Unspecified ovarian cyst, right side (principal); E66.01 Morbid (severe) obesity due to excess calories; Z79.890 Hormone replacement therapy; Z79.899 Other long term (current) drug therapy; Z84.1 Family history of disorders of kidney and ureter
CPT/HCPCS: J2405

== ENCOUNTER 2017-08-18 15:12 | Emergency (ER) | payer OTHER ==
[2017-08-18 17:39] LABS: KETONE, URINE AUTO RFX NEGATIVE (NEGATIVE); LEUKOCYTE ESTERASE UR AUTO RFX 1+ (NEGATIVE); MUCUS, URINE RFX SMALL (NEGATIVE); NITRITE, URINE AUTO RFX NEGATIVE (NEGATIVE); RBC, URINE AUTO RFX TNTC /HPF (0-3); SPECIFIC GRAVITY UR AUTO RFX 1.024 (1.002-1.035); SQUAM EPITHELIAL CELL UR AURFX 10 /HPF (0-6); WBC, URINE AUTO RFX 39 /HPF (0-3)
[2017-08-18] MEDS: ONDANSETRON 4MG/2ML VIAL (J2405) IV ×2 (18:00)
[2017-08-18] MEDS: NS 1,000 ML IV ×2 (18:01)
[2017-08-18] MEDS: KETOROLAC 30 MG/ML VIAL (J1885) IV ×2 (18:01)
[2017-08-18 18:06] LABS: BASO % 0.3 % (0.0-1.0); EOS # 0.1 10^3/uL (0.0-0.50); EOS % 0.6 % (0.0-3.0); HEMATOCRIT 42.3 % (36.0-47.0); HEMOGLOBIN 14.4 g/dl (12.0-16.0); IMMATURE GRANULOCYTE % 0.4 % (0-3.0); LYMPH # 1.7 10^3/uL (1.5-6.5); LYMPH % 14.8 % (24.0-44.0); MEAN CORPUSCULAR HEMOGLOBIN 29.1 pg (27.0-33.0); MEAN CORPUSCULAR VOLUME 85.5 fl (80.0-96.0); MONO # 0.6 10^3/uL (0.0-0.8); MONO % 5.3 % (0.0-5.0); NEUTROPHILS # 9.2 10^3/uL (1.8-7.7); NEUTROPHILS % 78.6 % (36.0-66.0); PLATELET COUNT, AUTOMATED 344 10^3/uL (150-450); RED BLOOD COUNT 4.95 10^6/uL (4.00-5.40); RED CELL DISTRIBUTION WIDTH 12.2 % (11.5-14.5); WHITE BLOOD COUNT 11.7 10^3/uL (4.0-10.0)
[2017-08-18 18:24] LABS: ALBUMIN 3.9 GM/DL (3.2-5.2); ALBUMIN/GLOBULIN RATIO 0.91 (1.00-1.93); ALKALINE PHOSPHATASE 92 U/L (45-117); ALT/SGPT 72 U/L (12-78); ANION GAP 7 MEQ/L (8-16); AST/SGOT 53 U/L (7-37); BILIRUBIN,TOTAL 0.7 MG/DL (0.2-1.0); BLOOD UREA NITROGEN 11 MG/DL (7-18); CALCIUM LEVEL 8.9 MG/DL (8.5-10.1); CARBON DIOXIDE LEVEL 28 MEQ/L (21-32); CHLORIDE LEVEL 105 MEQ/L (98-107); GLOMERULAR FILTRATION RATE > 60.0 (>60); GLUCOSE, FASTING 87 MG/DL (70-100); LIPASE 109 U/L (73-393); SODIUM LEVEL 140 MEQ/L (136-145); TOTAL PROTEIN 8.2 GM/DL (6.4-8.2)
== END 2017-08-18 19:04 | disposition home or self-care (01) ==
LOC: M ED 15:12
DX: N30.90 Cystitis, unspecified without hematuria (principal); R11.0 Nausea; Z79.899 Other long term (current) drug therapy
CPT/HCPCS: J2405

== ENCOUNTER → 2017-09-13 | Outpatient (REF) | payer OTHER | LOC: M LAB REF 09:30 | DX: N30.01 Acute cystitis with hematuria (principal) ==

== ENCOUNTER 2017-09-17 17:55 | Emergency (ER) | payer OTHER ==
[2017-09-17 20:01] LABS: CONTROL LINE HCG INT CTR LINE PRESENT; HCG, SERUM QUALITATIVE NEGATIVE (NEGATIVE)
[2017-09-17 20:56] LABS: HIV 1&2 SCREEN CENTAUR NEGATIVE (NEGATIVE)
[2017-09-17 21:26] LABS: CHLAMYDIA DNA AMPLIFICATION NEGATIVE (NEGATIVE); GC DNA AMPLIFICATION NEGATIVE (NEGATIVE)
[2017-09-19 14:36] LABS: HEPATITIS B SURFACE ANTIBODY POSITIVE (POSITIVE)
[2017-09-19 14:47] LABS: HEPATITIS B SURFACE ANTIGEN NEGATIVE (NEGATIVE)
[2017-09-19 15:15] LABS: HEPATITIS C VIRUS ABY INDEX < 0.0 INDEX (<0.8)
== END 2017-09-17 23:10 | disposition home or self-care (01) ==
LOC: M ED 17:55
DX: Z11.3 Encounter for screening for infections with a predominantly sexual mode of transmission (principal); E03.9 Hypothyroidism, unspecified; Z79.899 Other long term (current) drug therapy
CPT/HCPCS: 84703

== ENCOUNTER → 2017-09-24 | Outpatient (CLI) | payer OTHER ==
[2017-09-24 20:03] LABS: BASO % 0.4 % (0.0-1.0); EOS # 0.1 10^3/uL (0.0-0.50); EOS % 1.2 % (0.0-3.0); HEMATOCRIT 41.6 % (36.0-47.0); IMMATURE GRANULOCYTE % 0.1 % (0-3.0); LYMPH # 2.2 10^3/uL (1.5-6.5); LYMPH % 29.6 % (24.0-44.0); MEAN CORPUSCULAR HGB CONC 33.7 g/dl (32.0-36.5); MEAN CORPUSCULAR VOLUME 86.3 fl (80.0-96.0); MONO # 0.6 10^3/uL (0.0-0.8); MONO % 7.6 % (0.0-5.0); NEUTROPHILS # 4.5 10^3/uL (1.8-7.7); NEUTROPHILS % 61.1 % (36.0-66.0); PLATELET COUNT, AUTOMATED 337 10^3/uL (150-450); RED BLOOD COUNT 4.82 10^6/uL (4.00-5.40); RED CELL DISTRIBUTION WIDTH 12.7 % (11.5-14.5); WHITE BLOOD COUNT 7.4 10^3/uL (4.0-10.0)
[2017-09-24 20:10] LABS: ALBUMIN 3.9 GM/DL (3.2-5.2); ALBUMIN/GLOBULIN RATIO 1.15 (1.00-1.93); ALKALINE PHOSPHATASE 59 U/L (45-117); ALT/SGPT 46 U/L (12-78); ANION GAP 4 MEQ/L (8-16); AST/SGOT 23 U/L (7-37); BILIRUBIN,TOTAL 0.4 MG/DL (0.2-1.0); BLOOD UREA NITROGEN 10 MG/DL (7-18); CALCIUM LEVEL 8.8 MG/DL (8.5-10.1); CARBON DIOXIDE LEVEL 28 MEQ/L (21-32); CHLORIDE LEVEL 111 MEQ/L (98-107); CREATININE FOR GFR 0.77 MG/DL (0.55-1.30); GLOMERULAR FILTRATION RATE > 60.0 (>60); GLUCOSE, FASTING 74 MG/DL (70-100); POTASSIUM SERUM 4.2 MEQ/L (3.5-5.1); SODIUM LEVEL 143 MEQ/L (136-145); TOTAL PROTEIN 7.3 GM/DL (6.4-8.2)
== END ==
LOC: M WUC 16:31
DX: R19.7 Diarrhea, unspecified (principal); J06.9 Acute upper respiratory infection, unspecified
CPT/HCPCS: 80053

== ENCOUNTER 2017-09-27 15:35 | Emergency (ER) | payer OTHER ==
[2017-09-27] MEDS: NS 1,000 ML IV (16:53)
[2017-09-27] MEDS: ONDANSETRON 4MG/2ML VIAL (J2405) IV (16:53)
[2017-09-27] MEDS: KETOROLAC 30 MG/ML VIAL (J1885) IV (16:54)
[2017-09-27 17:17] LABS: BASO % 0.3 % (0.0-1.0); EOS # 0.1 10^3/uL (0.0-0.50); EOS % 1.1 % (0.0-3.0); HEMATOCRIT 44.9 % (36.0-47.0); HEMOGLOBIN 15.3 g/dl (12.0-15.5); IMMATURE GRANULOCYTE % 0.3 % (0-3.0); LYMPH # 2.5 10^3/uL (1.5-6.5); LYMPH % 24.5 % (24.0-44.0); MEAN CORPUSCULAR HEMOGLOBIN 28.9 pg (27.0-33.0); MEAN CORPUSCULAR HGB CONC 34.1 g/dl (32.0-36.5); MEAN CORPUSCULAR VOLUME 84.9 fl (80.0-96.0); MONO # 0.7 10^3/uL (0.0-0.8); MONO % 6.5 % (0.0-5.0); NEUTROPHILS # 6.8 10^3/uL (1.8-7.7); NEUTROPHILS % 67.3 % (36.0-66.0); PLATELET COUNT, AUTOMATED 399 10^3/uL (150-450); RED BLOOD COUNT 5.29 10^6/uL (4.00-5.40); RED CELL DISTRIBUTION WIDTH 12.5 % (11.5-14.5); WHITE BLOOD COUNT 10.1 10^3/uL (4.0-10.0)
[2017-09-27 17:46] LABS: ALBUMIN 4.3 GM/DL (3.2-5.2); ALKALINE PHOSPHATASE 73 U/L (45-117); ALT/SGPT 48 U/L (12-78); ANION GAP 7 MEQ/L (8-16); AST/SGOT 23 U/L (7-37); BILIRUBIN,TOTAL 0.6 MG/DL (0.2-1.0); BLOOD UREA NITROGEN 11 MG/DL (7-18); CARBON DIOXIDE LEVEL 27 MEQ/L (21-32); CHLORIDE LEVEL 108 MEQ/L (98-107); CREATININE FOR GFR 0.81 MG/DL (0.55-1.30); GLOMERULAR FILTRATION RATE > 60.0 (>60); GLUCOSE, FASTING 82 MG/DL (70-100); LIPASE 149 U/L (73-393); POTASSIUM SERUM 4.3 MEQ/L (3.5-5.1); SODIUM LEVEL 142 MEQ/L (136-145); TOTAL PROTEIN 8.2 GM/DL (6.4-8.2)
[2017-09-27] MEDS: CIPROFLOXACIN 500 MG TAB PO (18:39)
[2017-09-27] MEDS: PHENAZOPYRIDINE 100 MG TAB PO (18:39)
== END 2017-09-27 18:48 | disposition home or self-care (01) ==
LOC: M ED 15:35
DX: K76.0 Fatty (change of) liver, not elsewhere classified (principal); N39.0 Urinary tract infection, site not specified; R10.9 Unspecified abdominal pain; Z79.899 Other long term (current) drug therapy
CPT/HCPCS: J2405

== ENCOUNTER 2017-10-17 13:38 | Emergency (ER) | payer OTHER ==
[2017-10-17 14:44] LABS: BASO % 0.3 % (0.0-1.0); EOS # 0.1 10^3/uL (0.0-0.50); EOS % 0.8 % (0.0-3.0); HEMATOCRIT 38.8 % (36.0-47.0); HEMOGLOBIN 12.9 g/dl (12.0-15.5); IMMATURE GRANULOCYTE % 0.3 % (0-3.0); LYMPH # 1.7 10^3/uL (1.5-6.5); LYMPH % 27.6 % (24.0-44.0); MEAN CORPUSCULAR HEMOGLOBIN 28.7 pg (27.0-33.0); MEAN CORPUSCULAR HGB CONC 33.2 g/dl (32.0-36.5); MEAN CORPUSCULAR VOLUME 86.2 fl (80.0-96.0); MONO # 0.4 10^3/uL (0.0-0.8); MONO % 5.7 % (0.0-5.0); NEUTROPHILS % 65.3 % (36.0-66.0); PLATELET COUNT, AUTOMATED 290 10^3/uL (150-450); WHITE BLOOD COUNT 6.1 10^3/uL (4.0-10.0)
[2017-10-17 15:10] LABS: CONTROL LINE HCG INT CTR LINE PRESENT; HCG, SERUM QUALITATIVE NEGATIVE (NEGATIVE)
[2017-10-17 15:22] LABS: ANION GAP 8 MEQ/L (8-16); BLOOD UREA NITROGEN 10 MG/DL (7-18); CALCIUM LEVEL 8.6 MG/DL (8.5-10.1); CARBON DIOXIDE LEVEL 27 MEQ/L (21-32); CHLORIDE LEVEL 109 MEQ/L (98-107); CREATININE FOR GFR 0.88 MG/DL (0.55-1.30); GLOMERULAR FILTRATION RATE > 60.0 (>60); GLUCOSE, FASTING 127 MG/DL (70-100); POTASSIUM SERUM 3.7 MEQ/L (3.5-5.1); SODIUM LEVEL 144 MEQ/L (136-145)
[2017-10-17] MEDS: KETOROLAC 60 MG/2 ML VIAL (J1885) IM (18:53)
[2017-10-17] MEDS: ONDANSETRON 4 MG ORAL DISINTEGRATING TAB (Q0162 PER 1MG) PO (18:53)
== END 2017-10-17 19:30 | disposition left against medical advice (07) ==
LOC: M ED 13:38
DX: N93.8 Other specified abnormal uterine and vaginal bleeding (principal); E03.9 Hypothyroidism, unspecified; Z98.890 Other specified postprocedural states
CPT/HCPCS: Q0162

== ENCOUNTER 2018-02-03 20:21 | Emergency (ER) | payer OTHER ==
[2018-02-03] MEDS: ONDANSETRON 4 MG ORAL DISINTEGRATING TAB (Q0162 PER 1MG) PO (20:45)
[2018-02-03] MEDS: ACETAMINOPHEN TAB 650MG DOSE (2X325MG) PO (20:51)
== END 2018-02-03 22:46 | disposition home or self-care (01) ==
LOC: M ED 20:21
DX: S06.0X0A Concussion without loss of consciousness, initial encounter (principal); W20.8XXA Other cause of strike by thrown, projected or falling object, initial encounter; Y92.89 Other specified places as the place of occurrence of the external cause; E03.9 Hypothyroidism, unspecified; Z79.3 Long term (current) use of hormonal contraceptives
CPT/HCPCS: Q0162

== ENCOUNTER 2018-06-08 19:33 | Emergency (ER) | payer OTHER ==
[~2018-06-08] VITALS: Ht 165.1 cm; Wt 113.6 kg
[~2018-06-08 19:33] MED LIST: AFRI0.0511; BENT10CA PO; BENZ200C70 PO; CIPR-249 PO; KETO10TAB PO; LEVO100T5 PO; MACR100C43 PO; MOTR200T44 PO; MUCI600T37 PO; PREVTAB2; PYRI1TAB5 PO; TYLE325T5 PO; ULTR50TA8 PO; ZOFR4TAB14 PO
[2018-06-08 19:35] VITALS: BP 144/86
[2018-06-08] MEDS ORDERED: SYNT100T (19:44)
--- NOTE | 2018-06-09 00:11 | REPVR ---
EXAM: US Retroperitoneal Limited, Kidneys EXAM DATE/TIME: 06/08/2018 10:54 PM CLINICAL HISTORY: 27 years old, female; Pain; Abdominal pain; Flank; Right; Additional info: Right flank pain, hematuria, R/O hn/hu TECHNIQUE: Real-time ultrasound of the retroperitoneum with image documentation. Examination was focused on the kidneys. COMPARISON: GALLBLADDER US 10/18/2014 6:50 AM FINDINGS: Right kidney: Right kidney measures at least 11.2 x 4.8 x 5.4 cm. No hydronephrosis Left kidney: The left kidney measures 12.2 x 6.1 x 4.8 cm.. No hydronephrosis Bladder: The contour of the distended bladder is normal. Color Doppler examination of bladder demonstrates bilateral ureteral jets. Liver: Incidental note made of increased liver echotexture. IMPRESSION: 1. Normal renal ultrasound. No hydronephrosis. 2. Hepatic steatosis Electronically signed by: Parris Small On 06/09/2018 00:10:53 AM
[2018-06-09] MEDS ORDERED: PYRI1TAB5 PO (00:17)
[2018-06-09] MEDS ORDERED: PHENAZOPYRIDINE 100 MG TAB PO ONE (00:30)
== END 2018-06-09 00:47 | disposition home or self-care (01) ==
LOC: M ED 19:33
DX: R10.9 Unspecified abdominal pain (principal); R30.0 Dysuria

== ENCOUNTER 2018-07-02 10:13 | Emergency (ER) | payer OTHER ==
[~2018-07-02] VITALS: Ht 165.1 cm; Wt 113.6 kg
[~2018-07-02 10:13] MED LIST changes: +SYNT100T
[2018-07-02] MEDS ORDERED: ONDANSETRON 4 MG ORAL DISINTEGRATING TAB (Q0162 PER 1MG) PO ONE (13:00)
[2018-07-02] MEDS ORDERED: IBUPROFEN 600 MG TAB PO ONE (13:00)
--- NOTE | 2018-07-02 13:02 | REP ---
CT Head without contrast HISTORY: Fall COMPARISON: 02/03/2018 There is no intraparenchymal hemorrhage, acute infarct, mass or midline shift. The ventricular system is normal in appearance. There is no extra cerebral collection. There is no fracture. The visualized sinuses are clear. IMPRESSION: There is no intracranial lesion. Electronically Signed by Mati Paulino MD 07/02/2018 12:53 P
--- NOTE | 2018-07-02 13:06 | REP ---
CT cervical spine without contrast HISTORY: Fall Comparison: 10/20/2011 There is no acute fracture or subluxation. There is no disc bulge or herniation. The spinal canal and neural foramina are patent. The intervertebral discs and vertebral bodies are normal in height. IMPRESSION: There is no acute fracture or subluxation. Electronically Signed by Mati Paulino MD 07/02/2018 12:56 P
[2018-07-02 13:11] VITALS: BP 131/84
== END 2018-07-02 13:12 | disposition home or self-care (01) ==
LOC: M ED 10:13
DX: S09.90XA Unspecified injury of head, initial encounter (principal); S06.0X0A Concussion without loss of consciousness, initial encounter; W01.10XA Fall on same level from slipping, tripping and stumbling with subsequent striking against unspecified object, initial encounter; Y92.099 Unspecified place in other non-institutional residence as the place of occurrence of the external cause; Y93.9 Activity, unspecified; Y99.9 Unspecified external cause status; E03.9 Hypothyroidism, unspecified; Z79.899 Other long term (current) drug therapy
CPT/HCPCS: 70450; 72125; 99283; Q0162

== ENCOUNTER 2020-07-22 20:58 | Emergency (ER) | payer OTHER ==
[~2020-07-22] VITALS: Ht 165.1 cm; Wt 127.3 kg
[2020-07-23 02:15] VITALS: BP 122/75
== END 2020-07-23 02:45 | disposition home or self-care (01) ==
LOC: M ED 20:58
DX: T40.7X1A Poisoning by cannabis (derivatives), accidental (unintentional), initial encounter (principal); F12.121 Cannabis abuse with intoxication delirium; F17.200 Nicotine dependence, unspecified, uncomplicated; Y92.9 Unspecified place or not applicable; Y93.9 Activity, unspecified; Y99.9 Unspecified external cause status

== ENCOUNTER 2023-07-05 13:39 | Emergency (ER) | payer OTHER ==
[2023-07-05 13:40] VITALS: BP 161/87; TEMP 97.1; O2SAT 100
== END 2023-07-05 15:01 | disposition home or self-care (01) ==
LOC: M ED 13:39
DX: S93.402A Sprain of unspecified ligament of left ankle, initial encounter (principal); Y92.9 Unspecified place or not applicable; Y93.9 Activity, unspecified; Y99.9 Unspecified external cause status